=== PATIENT | female | born 1975 | race Caucasian/White ===

== ENCOUNTER → 2021-10-01 | Outpatient (CLI) | payer OTHER | LOC: M PLALAB 15:33 | PROVIDERS: ATTEND Family Medicine | DX: M79.672 Pain in left foot (principal) ==

== ENCOUNTER → 2024-06-07 | Outpatient (CLI) | payer OTHER ==
[~2024-06-07] MED LIST: ISOVUE-370 76% 100ML VIAL ONE
== END ==
LOC: M PLAIMG 07:39
PROVIDERS: ATTEND Physician Assistant
DX: R19.03 Right lower quadrant abdominal swelling, mass and lump (principal)
CPT/HCPCS: 72193; Q9967

== ENCOUNTER → 2024-06-08 | Outpatient (REF) | payer OTHER | LOC: M SFHCDERM 18:29 | PROVIDERS: ATTEND Physician Assistant | DX: D48.5 Neoplasm of uncertain behavior of skin (principal) ==

== ENCOUNTER → 2025-02-09 | Outpatient (REF) | payer OTHER ==
[~2025-02-09] MED LIST changes: +CALC-234 PO; -ISOVUE-370 76% 100ML VIAL ONE
[2025-05-04 15:17] LABS: HPV APTIMA Not Detected (Not Detected)
== END ==
LOC: M SFHCWAGY 13:19
PROVIDERS: ATTEND Specialist
DX: Z12.4 Encounter for screening for malignant neoplasm of cervix (principal); R87.610 Atypical squamous cells of undetermined significance on cytologic smear of cervix (ASC-US)
CPT/HCPCS: 87624; G0123

== ENCOUNTER → 2025-02-23 | Outpatient (CLI) | payer OTHER | LOC: M WHC 10:04 | PROVIDERS: ATTEND Student in an Organized Health Care Education/Training Program | DX: C50.919 Malignant neoplasm of unspecified site of unspecified female breast (principal) ==

== ENCOUNTER → 2025-03-01 | Outpatient (CLI) | payer OTHER | LOC: M ONCR 14:13 | PROVIDERS: ATTEND General Practice | DX: C50.311 Malignant neoplasm of lower-inner quadrant of right female breast (principal); Z98.890 Other specified postprocedural states; Z17.0 Estrogen receptor positive status [ER+]; Z17.21 Progesterone receptor positive status; Z17.32 Human epidermal growth factor receptor 2 negative status; Z85.828 Personal history of other malignant neoplasm of skin; Z80.8 Family history of malignant neoplasm of other organs or systems; Z88.1 Allergy status to other antibiotic agents; Z88.2 Allergy status to sulfonamides ==

== ENCOUNTER 2025-03-14 14:06 | Outpatient (RCR) | payer OTHER | END 2025-04-06 | LOC: M ONCR 14:06 | PROVIDERS: ATTEND General Practice | DX: Z51.0 Encounter for antineoplastic radiation therapy (principal); C50.411 Malignant neoplasm of upper-outer quadrant of right female breast ==